=== PATIENT | male | born 1970 | race Caucasian/White ===

== ENCOUNTER 2020-11-07 19:33 | Day surgery (SDC) | payer OTHER ==
[~2020-11-07] VITALS: Ht 180.3 cm; Wt 84.0 kg
--- NOTE | 2020-11-07 21:11 | PHYS DOC ---
Past Medical History Past Medical History: Asthma Past Surgical History: No Surgical History Smoking Status: Never Smoker Alcohol Use: Occasionally General Adult EDM: Chief Complaint: SWALLOWED FORIEGN BODY HPI: HPI: Patient is a 50 year old male presents to the emergency department complaining of a piece of meat stuck in his throat. Patient states that approximately 1800 today he was eating pork when he felt to get stuck down in the lower part of his throat. Patient states since then he has been unable to swallow anything without spitting it right back up. Patient states he is spitting up all his saliva as well. Patient denies nausea stating that this vomitus comes up without warning. Patient states he has had this problem in the past with getting food stuck in his esophagus but eventually it will pass. Patient states that it lasted longer than a couple hours so he became worried and came to the ER today. Patient denies any allergies to medications, denies having any surgeries, denies taking any medications prescription vega or [id number] at home. Patient denies any other medical complaints or physical concerns. Patient denies chest pain, denies shortness of breath, denies cough, denies chest congestion or nasal congestion. Review of Systems: Review of Systems: 14 body systems of review of systems have been reviewed. See HPI for pertinent positives and negative responses, otherwise all other systems are negative, nonpertinent or noncontributory. Heart Score: Risk Factors: Risk Factors: DM, Current or recent (<one month) smoker, HTN, HLP, family history of CAD, obesity. Risk Scores: Score 0 - 3: 2.5% MACE over next 6 weeks - Discharge Home Score 4 - 6: 20.3% MACE over next 6 weeks - Admit for Clinical Observation Score 7 - 10: 72.7% MACE over next 6 weeks - Early Invasive Strategies Allergies: Allergies: Allergies Coded Allergies Type Severity Reaction Last Updated Verified No Known Drug Allergies 11/07/20 No Physical Exam: PE: Constitutional: Well developed, well nourished, no acute distress, non-toxic appearance. Patient holding vomit bag to mouth and spitting saliva into bag. Patient is in no apparent distress. HENT: Normocephalic, atraumatic, bilateral external ears normal, oropharynx moist, no oral exudates, nose normal. Eyes: PERRLA, EOMI, conjunctiva normal, no discharge. Neck: Normal range of motion, no tenderness, supple, no stridor. Cardiovascular:Heart rate regular rhythm, no murmur Lungs & Thorax: Bilateral breath sounds clear to auscultation Abdomen: Bowel sounds normal, soft, no tenderness, no masses, no pulsatile masses. Skin: Warm, dry, no erythema, no rash. Back: No tenderness, no CVA tenderness. Extremities: No tenderness, no cyanosis, no clubbing, ROM intact, no edema. Neurologic: Alert and oriented X 3, normal motor function, normal sensory fu nction, no focal deficits noted. Psychologic: Affect normal, judgement normal, mood normal. GI: Patient unable to tolerate p.o. fluid, spitting swallowed saliva into a vomit bag. Current Patient Data: Vital Signs: Vital Signs Date Time Temp Pulse Resp B/P (MAP) Pulse Ox O2 Delivery O2 Flow Rate FiO2 11/07/20 20:00 98.0 73 16 155/89 (111) 98 Room Air 98.0 EKG: EKG: [] Radiology/Procedures: Radiology/Procedures: PATIENT: PURA MARIEE ACCOUNT: [id number] : 1970 LOCATION: ER AGE: 50 SEX: M EXAM STATUS: REG ER ORD. PHYSICIAN: HAFSA MORALES APRN REASON: SWALLOWED FB PROCEDURE: CHEST PA & LATERAL EXAM: XR CHEST 2V 11/07/2020 9:54 PM CLINICAL INDICATION: Swallowed foreign body COMPARISON: None TECHNIQUE: PA and lateral views of the chest FINDINGS: The heart and mediastinum are normal. Lungs are well-expanded and clear. No pleural effusion or pneumothorax. No radiopaque foreign body. No acute osseous abnormality. IMPRESSION: No acute cardiopulmonary abnormality. Electronically signed by: Carmen Cameron MD (11/07/2020 10:14 PM) [id number] DICTATED and SIGNED BY: CARMEN CAMERON MD DATE: 11/07/20 [id number] 0 Course & Med Decision Making: Course & Med Decision Making Pertinent Labs and Imaging studies reviewed. (See chart for details) 50-year-old male, vital signs reviewed, presents to the ER complaining of a piece of meat stuck in his throat. Physical examination is consistent with esophageal food bolus. ER work-up initiated, chest x-ray to rule out aspiration pneumonia, IV for IV glucagon and Zofran. Approximately 1/2-hour after IV glucagon given, patient continues to spit saliva into a vomit bag, states he does not feel like the food bolus has passed. Discussed case with GI specialist Dr. Resendiz who recommended that patient requires upper GI procedure to evaluate foreign body in esophagus. Discussed this plan with patient who is amendable to have a GI procedure. Called house nursing concrete paving supervisor who will alert after hours GI team and anesthesia for procedure. Patient is being transported to GI lab for upper GI procedure and further evaluation of esophageal food bolus by Dr. Resendiz. Dr. Resendiz has agreed to take over patient care at this time. Dragon Disclaimer: Dragon Disclaimer: This electronic medical record was generated, in whole or in part, using a voice recognition dictation system. Departure Departure Impression: Primary Impression: Esophageal obstruction due to food impaction Disposition: 02 DC/TRF OTHER SHORT TERM HOS (Patient transferred from emergency department to GI lab for procedure by Dr. Resendiz, admission versus discharge pending per Dr. Resendiz) Condition: STABLE Referrals: NO PCP (PCP) HAFSA MORALES APRN Nov 07, 2020 21:11
[2020-11-07] MEDS ORDERED: GLUCAGON,HUMAN RECOMBINANT 1 MG/ML VIAL. IV ONE (21:30)
[2020-11-07] MEDS ORDERED: ONDANSETRON PF 4 MG/2 ML VIAL. IVP ONE (22:00)
--- NOTE | 2020-11-07 22:16 | RAD ---
EXAM: XR CHEST 2V 11/07/2020 9:54 PM CLINICAL INDICATION: Swallowed foreign body COMPARISON: None TECHNIQUE: PA and lateral views of the chest FINDINGS: The heart and mediastinum are normal. Lungs are well-expanded and clear. No pleural effusi on or pneumothorax. No radiopaque foreign body. No acute osseous abnormality. IMPRESSION: No acute cardiopulmonary abnormality. Electronically signed by: Carmen Cameron MD (11/07/2020 10:14 PM) [id number]
[2020-11-07] MEDS ORDERED: PROPOFOL 10 MG/ML (20ML) VIAL. IV ONE ×3 (22:49→23:30)
[2020-11-07] MEDS ORDERED: SUCCINYLCHOLINE 200 MG/10 ML VIAL. ONE (23:00)
--- NOTE | 2020-11-07 23:13 | PDOC2 ---
CONSULT Date of Consult Date of Consult DATE: 11/07/20 TIME: 23:07 Reason for Consult Reason for Consult: food bolus obstruction Past Medical History GI: Other (recurrent dysphagia) Past Surgical History Past Surgical History: No pertinent history Family History Family History: Coronary Artery Disease Current Medications Current Medications Current Medications Glucagon (Glucagen) 1 mg 1X ONCE IV Last administered on 11/07/20at 21:31; Start 11/07/20 at 21:30; Stop 11/07/20 at 21:31; Status DC Ondansetron HCl (Zofran) 4 mg 1X ONCE IVP Last administered on 11/07/20at 21:30; Start 11/07/20 at 22:00; Stop 11/07/20 at 22:01; Status DC Propofol (Diprivan) 200 mg STK-MED ONCE IV ; Start 11/07/20 at 22:49; Stop 11/07/20 at 22:50; Status DC Allergies Allergies: Coded Allergies: No Known Drug Allergies (Unverified , 11/07/20) Physical Exam General: Alert, Oriented X3 Lungs: Clear to auscultation Heart: Regular rate, Normal S1, Normal S2 Abdomen: Normal bowel sounds, Soft, No tenderness, No hepatosplenomegaly, No masses Psych/Mental Status: Mental status NL Vitals VITALS Vital Signs Date Time Temp Pulse Resp B/P (MAP) Pulse Ox O2 Delivery O2 Flow Rate FiO2 11/07/20 20:00 98.0 73 16 155/89 (111) 98 Room Air 98.0 Labs Labs Laboratory Tests Test 11/07/20 22:20 SARS-CoV-2 Antigen (Rapid) Negative (NEGATIVE) Laboratory Tests Test 11/07/20 22:20 SARS-CoV-2 Antigen (Rapid) Negative (NEGATIVE) Assessment/Plan Assessment/Plan Acute food bolus obstruction of esophagus- history of intermittent solid food dysphagia- no prior EGD- no history of heartburn Plan- urgent EGD with foreign body removal CAROLINA GARCIA MD Nov 07, 2020 23:13
[2020-11-08] MEDS ORDERED: IV RINGERS,LACTATED 1000ML 1,000 ML IV ONE
--- NOTE | 2020-11-08 00:42 | PDOC4 ---
Procedure Note Procedure: EGD Indications: food bolus obstruction Complications: none Procedural Details: EGD large meat food bolus at mid esophagus- requiring rat tooth removal in piecemeal fashion - snare and Turcios net were not successful- multiple passes required several stenosis were seen- ? EoE Conclusions: Esophageal strictures food bolus removed CAROLINA GARCIA MD Nov 08, 2020 00:42
[2020-11-08 01:17] VITALS: BP 138/64
== END 2020-11-07 23:59 | disposition home or self-care (01) ==
LOC: ER 19:33 → SURG 23:06
PROVIDERS: ATTEND Internal Medicine Gastroenterology
DX: T18.128A Food in esophagus causing other injury, initial encounter (principal); R13.10 Dysphagia, unspecified; K22.2 Esophageal obstruction; K63.89 Other specified diseases of intestine; Z79.899 Other long term (current) drug therapy; Z72.89 Other problems related to lifestyle; Z98.890 Other specified postprocedural states; X58.XXXA Exposure to other specified factors, initial encounter; Y93.89 Activity, other specified; Y92.89 Other specified places as the place of occurrence of the external cause; Y99.8 Other external cause status
CPT/HCPCS: 43247; 71046; 87426; 96361; 96374; 96375; 99285; J0330; J1610; J2405; J2704; J7120; U0003